=== PATIENT | male | born 1950 | race Caucasian/White ===

== ENCOUNTER 2017-09-15 08:28 | Emergency (ER) | payer MEDICARE ==
[~2017-09-15] VITALS: Ht 182.9 cm; Wt 101.1 kg
[~2017-09-15 08:28] MED LIST: PERC5TAB12 PO
[2017-09-15 08:33] VITALS: BP 127/73; PULSE 100; RESP 18; TEMP 98.3; O2SAT 97
[2017-09-15] MEDS ORDERED: HYDR-3535 PO (10:00)
--- NOTE | 2017-09-15 10:12 | PD ---
HPI Chief Complaint: Injury Time Seen by Provider: 10:00 Travel History International Travel<30 days: No Contact w/Intl Traveler<30days: No Traveled to known affect area: No History of Present Illness HPI The patient is a 67-year-old male who presents to the emergency department for right shoulder pain. The patient states he was helping a friend with his boat last night, when he walked around the boat he struck a ladder over the top of the right shoulder and scapula. The pain is located over the anterior aspect the shoulder and over the superior aspect the scapula. The patient has pain with abduction and extension of the right shoulder as well as palpation. He does note mild edema over the right trapezius and superior aspect of the right scapula. The patient is right-hand dominant. He denies any weakness or numbness of the right upper extremity, but does note difficulty with movement at the shoulder. The patient does have a history of multiple myeloma and is currently being treated by Dr. Silva at the [facility] in [place] with a experimental drug which requires a six-hour infusion. Symptoms are mild to moderate, worse after striking his shoulder on the ladder, and there are no current alleviating factors. The patient tried taking hydrocodone at home several hours ago without any alleviation of his symptoms. PFSH Past Medical History Cancer: Yes (MULTIPLE MYELOMIA ) Cardiomyopathy: Yes Diminished Hearing: No Kidney Stones: Yes Medical other: Yes (DRUG TRIALS FOR MULTIPLE MYLEOMA) Radiation Therapy: Yes Tetanus Vaccination: < 5 Years Influenza Vaccination: Yes Past Surgical History Tonsillectomy: Yes Other Surgery: Yes (tumor removed from spine 2011) Social History Alcohol Use: No Tobacco Use: No Substance Use: No Allergies-Medications (Allergen,Severity, Reaction): Coded Allergies: No Known Allergies (Unverified , 09/15/17) Reported Meds & Prescriptions Reported Meds & Active Scripts Active Reported Lortab (Hydrocodone-Acetaminophen) 10-325 Mg Tab 1 Tab PO Q6H PRN Review of Systems Except as stated in HPI: all other systems reviewed are Neg General / Constitutional: No: Fever Cardiovascular: No: Chest Pain or Discomfort Respiratory: No: Shortness of Breath Gastrointestinal: No: Nausea, Vomiting, Abdominal Pain Musculoskeletal: Positive: Limited ROM, Edema, Pain Neurologic: No: Paresthesia, Sensory Disturbance Physical Exam Narrative GENERAL: Awake, alert, nontoxic-appearing 67-year-old male who appears his stated age and is in no acute respiratory distress. SKIN: Focused skin assessment warm/dry. HEAD: Atraumatic. Normocephalic. EYES: No injection or drainage. NECK: Trachea midline. No JVD. . MUSCULOSKELETAL: Mild edema of the superior aspect of the right scapula with a noticeable 2 cm circular contusion. Mild discomfort upon palpation of the anterior aspect of the right shoulder. No tenderness of the clavicle or acromioclavicular joint. Limited ability to extend the right shoulder as well as abduct the right shoulder. He is able to flex and extend the right elbow as well as supinate and pronate the right forearm without difficulty. Intrinsic hand muscles are intact. Positive right radial pulse. NEUROLOGICAL: Awake and alert. No obvious cranial nerve deficits. Motor grossly within normal limits. Normal speech. Sensation is intact on the right upper extremity in the radial, median, and ulnar distribution. PSYCHIATRIC: Appropriate mood and affect; insight and judgment normal. Data Data Last Documented VS Vital Signs Date Time Temp Pulse Resp B/P (MAP) Pulse Ox O2 Delivery O2 Flow Rate FiO2 09/15/17 10:00 (91) 09/15/17 08:33 98.3 100 18 97 Room Air Orders Orders Morphine Inj (Morphine Inj) (09/15/17 10:15) Promethazine Inj (Phenergan Inj) (09/15/17 10:15) Shoulder, Limited(2vws) (09/15/17 ) [facility] Medical Decision Making Medical Screen Exam Complete: Yes Emergency Medical Condition: Yes Medical Record Reviewed: Yes Interpretation(s) Last Impressions Shoulder X-Ray 09/15/17 0000 Signed Impressions: Service Date/Time: Friday, September 15, 2017 10:33 - CONCLUSION: 1. No acute abnormality. Charbel Alejandra Jr., MD Differential Diagnosis Differential diagnosis includes fracture, contusion, hematoma, sprain, strain. Narrative Course X-ray of the right shoulder was obtained. The patient was administered morphine and Phenergan intramuscularly. X-ray of the right shoulder reveals no acute abnormality. Patient will be placed in a sling as needed. 4, however, is advised to have daily range of motion exercises. He is advised to follow-up with his primary physician is symptoms persist as he may benefit from outpatient orthopedic and her physical therapy consultation. The patient will be provided a copy of his x-ray results at discharge. The patient's current pain regimen as hydrocodone 10 mg as needed, however, he states he did not help. Therefore, the patient was treated to oxycodone 10 mg, is advised not to take hydrocodone while taking oxycodone. Diagnosis Primary Impression: Right shoulder pain Qualified Codes: M25.511 - Pain in right shoulder Patient Instructions: General Instructions Additional Instructions: Sling as needed for comfort. Daily range of motion exercises of the shoulder with extension and abduction. Ice over the affected area for 48 hours then ice and/or heat as needed. Follow-up with your primary physician. You may benefit from outpatient physical therapy and/or orthopedic evaluation if symptoms persist. Please provide the patient a copy of his x-ray results at discharge. Med/Other Pt SpecificInfo: Prescription(s) given, Med Stopped (stop hydrocodone wall taken oxycodone) Scripts Oxycodone-Acetaminophen (Percocet) 10-325 mg Tab 1 TAB PO Q6H Y for PAIN, #20 TAB 0 Refills Prov: Saeid Ibanez MD 09/15/17 Disposition: 01 DISCHARGE HOME Condition: Stable Saeid Ibanez MD Sep 15, 2017 10:12
[2017-09-15] MEDS ORDERED: MORPHINE SULFATE 4 MG/ML INJ IM ONE (10:15)
[2017-09-15] MEDS ORDERED: PROMETHAZINE INJ 25 MG/ML VIAL IM ONE (10:15)
--- NOTE | 2017-09-15 10:52 | RADRPT ---
EXAM DATE/TIME: 09/15/2017 10:33 [facility] COMPARISON: No previous studies available for comparison. INDICATIONS : Right shoulder pain post running into a ladder. MEDICAL HISTORY : Multiple myeloma SURGICAL HISTORY : Port placement ENCOUNTER: Initial ACUITY: 2 days PAIN SCORE: 10/10 LOCATION: Right shoulder FINDINGS: Two view examination of the right shoulder demonstrates no evidence of fracture or dislocation. Degen erative change is observed involving the acromioclavicular joint. No subacromial space narrowing. The glenohumeral and acromioclavicular joints are maintained. Bony mineralization is normal. A power po rt overlies the right chest. CONCLUSION: 1. No acute abnormality. Charbel Alejandra Jr., MD on September 15, 2017 at 10:48 Board Certified Radiologist. This report was verified electronically.
[2017-09-15] MEDS ORDERED: PERC10TA27 PO (11:32)
== END 2017-09-15 11:44 | disposition home or self-care (01) ==
LOC: PHED 08:28
DX: M25.511 Pain in right shoulder (principal); C90.00 Multiple myeloma not having achieved remission; W22.09XA Striking against other stationary object, initial encounter; Y92.814 Boat as the place of occurrence of the external cause
CPT/HCPCS: 73030; 96372; 99284; J2270; J2550

== ENCOUNTER 2018-03-04 07:11 | Inpatient (IN) | payer MEDICARE ==
[2018-03-04] VITALS (41 sets, daily range): BP systolic 74–140; BP diastolic 48–89; PULSE 58–170; RESP 0–25; TEMP 98.1–98.6; O2SAT 96–100
[~2018-03-04] VITALS: Ht 182.9 cm; Wt 92.7 kg
[~2018-03-04 07:11] MED LIST changes: +HYDR-3535 PO; +PERC10TA27 PO; -PERC5TAB12 PO
[2018-03-04] MEDS ORDERED: [UNRECOGNIZED DRUG - OTHER] PO (07:23)
[2018-03-04] MEDS ORDERED: MULT-65 PO (07:23)
[2018-03-04] MEDS ORDERED: [UNRECOGNIZED DRUG - OTHER] PO (07:23)
[2018-03-04] MEDS ORDERED: ASPI-183 PO (07:23)
--- NOTE | 2018-03-04 07:29 | PD ---
HPI Chief Complaint: Cardiac Complaint Time Seen by Provider: 07:21 Travel History International Travel<30 days: No Contact w/Intl Traveler<30days: No History of Present Illness HPI Patient is a 67-year-old male with history of multiple myeloma currently being treated by Dr. Duff at the [facility] in [place], presents the emergency room with complaints of nausea and vomiting for the past 3 days as well as abnormal heart rhythm for the past 12 hours. Patient reports that for the past 3 days, he has not been able to keep anything down. Patient reports that he has been nauseous and has been vomiting everything up, reports that for the past 12 hours, he has been having palpitations. Patient reports that he is currently on a drug trial for multiple myeloma, he completed 21 days of Revlimid 25mg (second cycle) and is currently on his week off of this medication. In addition, patient is currently taking AT-101 20mg daily for his MM. Patient denies any sick contacts, denies any recent travels, reports that his GI symptoms began all of a sudden 3 days ago. Patient reports that with his drug trials for multiple myeloma, his renal function is being monitored, last kidney function test 2 weeks ago was normal as per patient. At this time, patient reports feeling palpitations, denies any chest pain or shortness of breath. Denies any fevers or chills. 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 [facility] Past Medical History Cancer: Yes (MULTIPLE MYELOMIA ) Cardiomyopathy: Yes Diminished Hearing: No Kidney Stones: Yes Radiation Therapy: Yes Past Surgical History Tonsillectomy: Yes Other Surgery: Yes (tumor removed from spine 2011) Social History Alcohol Use: No Tobacco Use: No Substance Use: No Allergies-Medications (Allergen,Severity, Reaction): Coded Allergies: No Known Allergies (Unverified Allergy, Unknown, 03/04/18) Reported Meds & Prescriptions Reported Meds & Active Scripts Active Reported Aspirin 325 Mg Tab 325 Mg PO DAILY Multi-Vitamin Daily (Multiple Vitamin) 1 Tab Tab 1 Tab PO DAILY [revlmid] 25 Mg PO DAILY [At 101] 20 Mg PO DAILY Review of Systems General / Constitutional: No: Fever Eyes: No: Visual changes HENT: Positive: Headaches Cardiovascular: Positive: Palpitations, Irregular Rhythm, Tachycardia, No: Chest Pain or Discomfort, Diaphoresis, Syncope Respiratory: No: Shortness of Breath Gastrointestinal: Positive: Nausea, Vomiting, No: Diarrhea, Abdominal Pain, Constipation Genitourinary: No: Dysuria Musculoskeletal: No: Pain Skin: No Rash Neurologic: No: Weakness Psychiatric: No: Depression Endocrine: No: Polydipsia Hematologic/Lymphatic: No: Easy Bruising Physical Exam Narrative GENERAL: moderate distress SKIN: Focused skin assessment warm/dry. HEAD: Atraumatic. Normocephalic. EYES: Pupils equal and round. No scleral icterus. No injection or drainage. ENT: No nasal bleeding or discharge. Mucous membranes pink and tachy NECK: Trachea midline. No JVD. CARDIOVASCULAR: Tachycardic. No murmur appreciated. RESPIRATORY: No accessory muscle use. Clear to auscultation. Breath sounds equal bilaterally. GASTROINTESTINAL: Abdomen soft, non-tender, nondistended. Hepatic and splenic margins not palpable. MUSCULOSKELETAL: No obvious deformities. No clubbing. No cyanosis. No edema. NEUROLOGICAL: Awake and alert. No obvious cranial nerve deficits. Motor grossly within normal limits. Normal speech. PSYCHIATRIC: Anxious mood and affect; insight and judgment normal. Data Data Last Documented VS Vital Signs Date Time Temp Pulse Resp B/P (MAP) Pulse Ox O2 Delivery O2 Flow Rate FiO2 03/04/18 10:10 138 18 103/71 (82) 98 Room Air 03/04/18 07:24 98.6 Orders Orders B-Type Natriuretic Peptide (03/04/18 07:22) Ckmb (Isoenzyme) Profile (03/04/18 07:22) Complete Blood Count With Diff (03/04/18 07:22) Comprehensive Metabolic Panel (03/04/18 07:22) Magnesium (Mg) (03/04/18 07:22) Prothrombin Time / Inr (Pt) (03/04/18 07:22) Act Partial Throm Time (Ptt) (03/04/18 07:22) Troponin I (03/04/18 07:22) Lipase (03/04/18 07:22) Chest, Single Ap (03/04/18 07:22) Ecg Monitoring (03/04/18 07:22) Iv Access Insert/Monitor (03/04/18 07:22) Oximetry (03/04/18 07:22) Sodium Chloride 0.9% Flush (Ns Flush) (03/04/18 07:30) Sodium Chlor 0.9% 1000 Ml Inj (Ns 1000 M (03/04/18 07:30) Sodium Chlor 0.9% 1000 Ml Inj (Ns 1000 M (03/04/18 07:30) Calcium Gluconate Inj (Calcium Gluconate (03/04/18 07:30) Adenosine Inj (Adenocard Inj) (03/04/18 08:15) Ct Pulmonary Angiogram (03/04/18 08:37) Iohexol 350 Inj (Omnipaque 350 Inj) (03/04/18 09:21) Sodium Chlor 0.9% 1000 Ml Inj (Ns 1000 M (03/04/18 09:45) Electrocardiogram (03/04/18 ) Diltiazem Inj (Cardizem Inj) (03/04/18 10:15) Aspirin (Aspirin) (03/04/18 10:15) Admit Order (Ed Use Only) (03/04/18 10:21) Potassium Chloride (Kcl) (03/04/18 10:30) Magnesium Sulfate 1 Gm Premix (Magnesium (03/04/18 10:30) Labs Laboratory Tests Test 03/04/18 07:25 White Blood Count 8.6 TH/MM3 Red Blood Count 5.17 MIL/MM3 Hemoglobin 15.3 GM/DL Hematocrit 45.5 % Mean Corpuscular Volume 87.9 FL Mean Corpuscular Hemoglobin 29.5 PG Mean Corpuscular Hemoglobin Concent 33.6 % Red Cell Distribution Width 16.6 % Platelet Count 215 TH/MM3 Mean Platelet Volume 8.3 FL Neutrophils (%) (Auto) 57.5 % Lymphocytes (%) (Auto) 24.4 % Monocytes (%) (Auto) 16.9 % Eosinophils (%) (Auto) 1.0 % Basophils (%) (Auto) 0.2 % Neutrophils # (Auto) 5.0 TH/MM3 Lymphocytes # (Auto) 2.1 TH/MM3 Monocytes # (Auto) 1.4 TH/MM3 Eosinophils # (Auto) 0.1 TH/MM3 Basophils # (Auto) 0.0 TH/MM3 CBC Comment DIFF FINAL Differential Comment Prothrombin Time 10.5 SEC Prothromb Time International Ratio 1.0 RATIO Activated Partial Thromboplast Time 35.1 SEC Blood Urea Nitrogen 30 MG/DL Creatinine 1.00 MG/DL Random Glucose 110 MG/DL Total Protein 6.9 GM/DL Albumin 3.3 GM/DL Calcium Level 8.7 MG/DL Magnesium Level 2.1 MG/DL Alkaline Phosphatase 89 U/L Aspartate Amino Transf (AST/SGOT) 16 U/L Alanine Aminotransferase (ALT/SGPT) 36 U/L Total Bilirubin 0.9 MG/DL Sodium Level 137 MEQ/L Potassium Level 3.3 MEQ/L Chloride Level 100 MEQ/L Carbon Dioxide Level 30.3 MEQ/L Anion Gap 7 MEQ/L Estimat Glomerular Filtration Rate 75 ML/MIN Total Creatine Kinase 36 U/L Troponin I LESS THAN 0.02 NG/ML B-Type Natriuretic Peptide 47 PG/ML Lipase 163 U/L MDM Medical Decision Making Medical Screen Exam Complete: Yes Emergency Medical Condition: Yes Medical Record Reviewed: Yes Interpretation(s) Vital Signs Date Time Temp Pulse Resp B/P (MAP) Pulse Ox O2 Delivery O2 Flow Rate FiO2 03/04/18 07:24 98.6 170 20 117/89 (98) 99 Differential Diagnosis Electrolyte abnormality, ACS, gastroenteritis Narrative Course 67-year-old male who presents the emergency room with complaints of palpitations and tachycardia for the past 2 hours, reports that for the past 3 days, he has been having increased nausea vomiting, he is unable to keep any fluids or food in his system. During the course of the patients emergency department visit, the patients history, examination, and differential diagnosis were reviewed with the patient. The patient was placed on a monitoring and evaluation advisor with oximetry and frequent blood pressure monitoring. The patient had an IV access obtained and blood work sent for analysis. The patient was initially provided 2 L of IV fluid The patients laboratory studies were reviewed and remarkable for: Laboratory Tests Test 03/04/18 07:25 White Blood Count 8.6 TH/MM3 (4.0-11.0) Red Blood Count 5.17 MIL/MM3 (4.50-5.90) Hemoglobin 15.3 GM/DL (13.0-17.0) Hematocrit 45.5 % (39.0-51.0) Mean Corpuscular Volume 87.9 FL (80.0-100.0) Mean Corpuscular Hemoglobin 29.5 PG (27.0-34.0) Mean Corpuscular Hemoglobin Concent 33.6 % (32.0-36.0) Red Cell Distribution Width 16.6 % (11.6-17.2) Platelet Count 215 TH/MM3 (150-450) Mean Platelet Volume 8.3 FL (7.0-11.0) Neutrophils (%) (Auto) 57.5 % (16.0-70.0) Lymphocytes (%) (Auto) 24.4 % (9.0-44.0) Monocytes (%) (Auto) 16.9 % (0.0-8.0) Eosinophils (%) (Auto) 1.0 % (0.0-4.0) Basophils (%) (Auto) 0.2 % (0.0-2.0) Neutrophils # (Auto) 5.0 TH/MM3 (1.8-7.7) Lymphocytes # (Auto) 2.1 TH/MM3 (1.0-4.8) Monocytes # (Auto) 1.4 TH/MM3 (0-0.9) Eosinophils # (Auto) 0.1 TH/MM3 (0-0.4) Basophils # (Auto) 0.0 TH/MM3 (0-0.2) CBC Comment DIFF FINAL Differential Comment Prothrombin Time 10.5 SEC (9.8-11.6) Prothromb Time International Ratio 1.0 RATIO Activated Partial Thromboplast Time 35.1 SEC (24.3-30.1) Blood Urea Nitrogen 30 MG/DL (7-18) Creatinine 1.00 MG/DL (0.60-1.30) Random Glucose 110 MG/DL (74-106) Total Protein 6.9 GM/DL (6.4-8.2) Albumin 3.3 GM/DL (3.4-5.0) Calcium Level 8.7 MG/DL (8.5-10.1) Magnesium Level 2.1 MG/DL (1.5-2.5) Alkaline Phosphatase 89 U/L (45-117) Aspartate Amino Transf (AST/SGOT) 16 U/L (15-37) Alanine Aminotransferase (ALT/SGPT) 36 U/L (12-78) Total Bilirubin 0.9 MG/DL (0.2-1.0) Sodium Level 137 MEQ/L (136-145) Potassium Level 3.3 MEQ/L (3.5-5.1) Chloride Level 100 MEQ/L (98-107) Carbon Dioxide Level 30.3 MEQ/L (21.0-32.0) Anion Gap 7 MEQ/L (5-15) Estimat Glomerular Filtration Rate 75 ML/MIN (>89) Total Creatine Kinase 36 U/L (39-308) Troponin I LESS THAN 0.02 NG/ML B-Type Natriuretic Peptide 47 PG/ML (0-100) Lipase 163 U/L (73-393) Radiology studies were reviewed and remarkable for: Last Impressions CT Angiography 03/04/18 0837 Signed Impressions: Service Date/Time: Sunday, March 04, 2018 09:09 - CONCLUSION: No acute disease. No PE. No parenchyma abnormality. Cassy Harp MD Chest X-Ray 03/04/18721 Signed Impressions: Service Date/Time: Sunday, March 04, 2018 07:29 - CONCLUSION: No acute disease. Cassy Harp MD Patient appears to go from sinus tachycardia with a heart rate in the 160s to normal sinus rhythm at 80-90 bpm, I did administer a dose of iv adenosine 6mg as his hr fluctuates to the 160's - 170s - after this was given, patients rhythm shows atrial fibrillation. Discussed with patient need to start a Cardizem drip. Plan to admit to ICU Case reviewed with Dr. Lujan who accepts patient to service. Critical Care Narrative Aggregate critical care time was 30 minutes. Time to perform other separately billable procedures was not included in the critical care time. My time did not include minutes spent treating any other patients simultaneously or on activities that did not directly contribute to the patient's treatment. The services I provided to this patient were to treat and/or prevent clinically significant deterioration that could result in: , decompensation, deterioration I provided critical care services requiring my management, as noted below: Chart data review, documentation time, medication orders and management, vital sign assessments/reviewing monitor data, ordering and reviewing lab tests, ordering and interpreting/reviewing x-rays and diagnostic studies, care of the patient and discussion of the patient with the admitting physicians. Diagnosis Primary Impression: New onset a-fib Admitting Information Admitting Physician Requests: Observation Vicky Oden DO Mar 04, 2018 07:29
[2018-03-04] MEDS ORDERED: SODIUM CHLOR 0.9% 1000 ML INJ 1,000 ML IV ONE ×4 (07:30→14:30)
[2018-03-04] MEDS ORDERED: CALCIUM GLUCONATE INJ 2 GM in DEXTROSE 5% IN WATER 100ML INJ 100 ML IV ONE ×2 (07:30)
[2018-03-04] MEDS ORDERED: SODIUM CHLORIDE 0.9% FLUSH 10 ML FLUSH IVF PRN (07:30)
[2018-03-04 07:38] LABS: BASOPHIL % 0.2 % (0.0-2.0); EOSINOPHIL # 0.1 TH/MM3 (0-0.4); HEMATOCRIT 45.5 % (39.0-51.0); HEMOGLOBIN 15.3 GM/DL (13.0-17.0); LYMPH % 24.4 % (9.0-44.0); LYMPHOCYTE # 2.1 TH/MM3 (1.0-4.8); MEAN CELL VOLUME 87.9 FL (80.0-100.0); MEAN CORPUSCULAR HEMOGLOBIN 29.5 PG (27.0-34.0); MEAN CORPUSCULAR HGB CONC 33.6 % (32.0-36.0); MEAN PLATELET VOLUME 8.3 FL (7.0-11.0); MONO % 16.9 % (0.0-8.0); MONOCYTE # 1.4 TH/MM3 (0-0.9); NEUT % 57.5 % (16.0-70.0); PLATELET COUNT 215 TH/MM3 (150-450); RED BLOOD COUNT 5.17 MIL/MM3 (4.50-5.90); RED CELL DISTRIBUTION WIDTH 16.6 % (11.6-17.2); WHITE BLOOD COUNT 8.6 TH/MM3 (4.0-11.0)
--- NOTE | 2018-03-04 07:42 | RADRPT ---
EXAM DATE/TIME: 03/04/2018 07:29 [facility] COMPARISON: CHEST SINGLE AP, May 07, 2015, 22:30. INDICATIONS : Palpitations MEDICAL HISTORY : Multiple myeloma SURGICAL HISTORY : port placement ENCOUNTER: Initial ACUITY: 1 day PAIN SCORE: 0/10 LOCATION: Bilateral chest FINDINGS: A single view of the chest demonstrates the lungs to be symmetrically aerated without evidence of mas s, infiltrate or effusion. There is a central line present with the tip overlying the distal SVC. The cardiomediastinal contours are unremarkable. Osseous structures are intact. CONCLUSION: No acute disease. Cassy Harp MD on March 04, 2018 at 7:39 Board Certified Radiologist. This report was verified electronically.
[2018-03-04 07:46] LABS: CHLORIDE 100 MEQ/L (98-107); SODIUM (NA) 137 MEQ/L (136-145)
[2018-03-04 07:49] LABS: CALCIUM 8.7 MG/DL (8.5-10.1)
[2018-03-04 07:50] LABS: ALBUMIN 3.3 GM/DL (3.4-5.0); BICARBONATE 30.3 MEQ/L (21.0-32.0); BLOOD UREA NITROGEN 30 MG/DL (7-18); GLUCOSE,RANDOM 110 MG/DL (74-106); MAGNESIUM 2.1 MG/DL (1.5-2.5); PROTHROMBIN TIME - PATIENT 10.5 SEC (9.8-11.6)
[2018-03-04 07:53] LABS: ALT (GPT) 36 U/L (12-78); AST (GOT) 16 U/L (15-37); GLOMERULAR FILTRATION RATE 75 ML/MIN (>89)
[2018-03-04 07:54] LABS: TOTAL BILIRUBIN ADULT 0.9 MG/DL (0.2-1.0); TOTAL PROTEIN 6.9 GM/DL (6.4-8.2)
[2018-03-04 07:56] LABS: ALKALINE PHOSPHATASE 89 U/L (45-117)
[2018-03-04 07:58] LABS: TROPONIN I LESS THAN 0.02 NG/ML (0.02-0.05)
[2018-03-04] MEDS: ADENOSINE IV SOLN 3 MG/ML 2 ML VIAL IV PUSH ONE ×2 (08:23→09:51)
[2018-03-04] MEDS ORDERED: IOHEXOL 350 MG/ML 10 ML VIAL (for RAD DIAG) IVCONTRAST ONE (09:21)
--- NOTE | 2018-03-04 09:30 | RADRPT ---
EXAM DATE/TIME: 03/04/2018 09:09 [facility] COMPARISON: CHEST SINGLE AP, March 04, 2018, 7:29. INDICATIONS : Tachycardia. IV CONTRAST: 65 cc Omnipaque 350 (iohexol) IV RADIATION DOSE: 17.87 CTDIvol (mGy) MEDICAL HISTORY : Multiple myeloma. SURGICAL HISTORY : Tumor removed from spine. ENCOUNTER: Initial ACUITY: 1 day PAIN SCALE: 0/10 LOCATION: chest TECHNIQUE: Volumetric scanning of the chest was performed using a pulmonary embolism protocol MIP images were re constructed. Using automated exposure control and adjustment of the mA and/or kV according to patien t size, radiation dose was kept as low as reasonably achievable to obtain optimal diagnostic quality images. DICOM format image data is available electronically for review and comparison. Follow-up recommendations for detected pulmonary nodules are based at a minimum on nodule size and pa tient risk factors according to Fleischner Society Guidelines. FINDINGS: PULMONARY ARTERIES: No filling defects are seen in the pulmonary arteries through the segmental level. LUNGS: There is no consolidation or pneumothorax . No concerning pulmonary nodule is visualized. PLEURAE: There is no pleural thickening or pleural effusion. MEDIASTINUM: There is good visualization of the great vessels of the middle mediastinum. No evidence of mediastin al or hilar adenopathy/mass. MUSCULOSKELETAL: Within normal limits for patient age. MISCELLANEOUS: The visualized upper abdominal organs demonstrate no acute abnormality. CONCLUSION: No acute disease. No PE. No parenchyma abnormality. Cassy Harp MD on March 04, 2018 at 9:24 Board Certified Radiologist. This report was verified electronically.
[2018-03-04] MEDS ORDERED: DILTIAZEM INJ 125 MG in SODIUM CHLORIDE 0.9% INJ 100 ML IV PRN (10:15)
[2018-03-04] MEDS ORDERED: ASPIRIN 325 MG TAB PO ONE (10:15)
[2018-03-04] MEDS: SODIUM CHLOR 0.9% 1000 ML INJ 1,000 ML IV SCH ×2 (10:25→21:07)
[2018-03-04] MEDS ORDERED: CHLORHEXIDINE GLUCONATE 2 % 1 PACK (2 CLOTHS) TOP PRN (10:30)
[2018-03-04] MEDS ORDERED: LACTULOSE SYRUP 20 GM/30 ML CUP PO PRN (10:30)
[2018-03-04] MEDS ORDERED: ACETAMINOPHEN 325 MG TAB PO PRN (10:30)
[2018-03-04] MEDS ORDERED: MAGNESIUM SULFATE 1 GM PREMIX 100 ML IV SCH (10:30)
[2018-03-04] MEDS ORDERED: ONDANSETRON HCL 4 MG/2 ML VIAL IV PUSH PRN (10:30)
[2018-03-04] MEDS ORDERED: SODIUM CHLORIDE 0.9% FLUSH 10 ML FLUSH IV FLUSH PRN (10:30)
[2018-03-04] MEDS ORDERED: MAGNESIUM HYDROXIDE SUSP 30 ML CUP PO PRN (10:30)
[2018-03-04] MEDS ORDERED: RESP: ALBUTEROL 2.5 MG/3 ML NEB (PRN) INH (10:30)
[2018-03-04] MEDS ORDERED: POTASSIUM CHLORIDE 20 MEQ CONTROLLED RELEASE TAB PO ONE (10:30)
[2018-03-04] MEDS ORDERED: BISACODYL 10 MG SUPP RECTAL PRN (10:30)
[2018-03-04] MEDS ORDERED: MISCELLANEOUS NURSING INFORMATION XX SCH (10:30)
[2018-03-04] MEDS ORDERED: MORPHINE SULFATE 4 MG/ML INJ IV PUSH PRN (10:30)
[2018-03-04] MEDS ORDERED: SENNOSIDES 8.6 MG TAB PO PRN (10:30)
[2018-03-04] MEDS ORDERED: ACETAMINOPHEN/HYDROcodone 325 MG/5 MG TAB PO PRN (10:30)
[2018-03-04] MEDS ORDERED: POTASSIUM CHLOR 10 MEQ PREMIX 100 ML IV SCH (10:45)
[2018-03-04] MEDS ORDERED: ALBUMIN 5% INJ 500 ML IV ONE (10:45)
[2018-03-04] MEDS ORDERED: DIGOXIN 0.5 MG/2 ML VIAL IV PUSH ONE ×2 (10:45→16:45)
[2018-03-04] MEDS ORDERED: TERBUTALINE INJ 1 MG/ML AMP SQ PRN (11:15)
[2018-03-04] MEDS ORDERED: ESMOLOL DRIP INJ PREMIX 250 ML IV PRN (11:15)
[2018-03-04] MEDS ORDERED: PHENYLEPHRINE INJ 40 MG in DEXTROSE 5% IN WATE 500 ML INJ 496 ML IV PRN ×2 (11:15)
[2018-03-04] MEDS ORDERED: PHENYLEPHRINE HCL 10 MG/ML VIAL ONE (12:29)
[2018-03-04] MEDS ORDERED: PILL SPLITTER OTHER PRN (14:45)
--- NOTE | 2018-03-04 16:37 | EKG ---
Date Performed: 03/04/2018 Time Performed: 07:15:47 PTAGE: 67 years EKG: ATRIAL FLUTTER WITH 2:1 CONDUCTION AND RAPID VENTRICULAR RATE INTRAVENTRICULAR CONDUCTION D ELAY DIFFUSE NONSPECIFIC ST-T CHANGE Compared to previous tracing, atrial fibrillation has changed to atrial flutter ABNORMAL ECG PREVIOUS TRACING : 05/07/2015 22.31 DOCTOR: Roldan Goldman Interpretating Date/Time 03/04/2018 16:35:49
--- NOTE | 2018-03-04 16:38 | EKG ---
Date Performed: 03/04/2018 Time Performed: 08:12:46 PTAGE: 67 years EKG: Rhythm begins at Sinus rhythm with a rate of 62. A Premature atrial contraction occurs midway through the tracing which changes th e rhythm to atrial fibrillation with rapid ventricular response Right ventricular conduction disturba nce Compared to previous tracing, there is a rhythm change from atrial flutter on the previous tracin g to sinus rhythm back to atrial fibrillation on this tracing ABNORMAL ECG PREVIOUS TRACING : 03/04/2018 07.15 DOCTOR: Roldan Goldman Interpretating Date/Time 03/04/2018 16:37:48
--- NOTE | 2018-03-04 16:40 | EKG ---
Date Performed: 03/04/2018 Time Performed: 08:14:39 PTAGE: 67 years EKG: SINUS TACHYCARDIA WITH ATRIAL BIGEMINY FOR 2 BEATS. THEN PREMATURE ATRIAL CONTRACTION CONVE RTS RHYTHM TO ATRIAL FIBRILLATION WITH RAPID VENTRICULAR RESPONSE OF 150-[address]-T WAVE CH SNEHAL Since the previous tracing, no significant change noted Clinical correlation is recommended ABNO RMAL ECG PREVIOUS TRACING : 03/04/2018 07.15 DOCTOR: Roldan Goldman Interpretating Date/Time 03/04/2018 16:39:17
--- NOTE | 2018-03-04 16:41 | EKG ---
Date Performed: 03/04/2018 Time Performed: 10:05:38 PTAGE: 67 years EKG: ATRIAL FIBRILLATION WITH RAPID VENTRICULAR RESPONSE MODERATE ST DEPRESSION Compared to prev ious tracing, rhythm is now persistently atrial fibrillation with rapid ventricular response ABNORMAL ECG PREVIOUS TRACING : 03/04/2018 08.14 DOCTOR: Roldan Goldman Interpretating Date/Time 03/04/2018 16:39:55
--- NOTE | 2018-03-04 16:41 | EKG ---
Date Performed: 03/04/2018 Time Performed: 10:44:24 PTAGE: 67 years EKG: ATRIAL FIBRILLATION WITH RAPID VENTRICULAR RESPONSE MODERATE ST DEPRESSION DIFFUSE NONSPECI FIC ST-T WAVE CHANGE Since the previous tracing, no significant change noted ABNORMAL ECG PREVIOUS TRACING : 03/04/2018 10.05 DOCTOR: Roldan Goldman Interpretating Date/Time 03/04/2018 16:40:31
[2018-03-04 16:45] LABS: MAGNESIUM 1.8 MG/DL (1.5-2.5)
[2018-03-04 16:54] LABS: TROPONIN I 0.02 NG/ML (0.02-0.05)
[2018-03-04] MEDS ORDERED: ZOLPIDEM TARTRATE 5 MG TAB PO PRN (18:15)
--- NOTE | 2018-03-04 18:22 | ECHRPT ---
Indication: A FIB FLUTTER CONCLUSIONS Normal left ventricular size. Wall thickness is normal. The left ventricular systolic function is normal with an estimated ejection fraction in the range of 55-60%. Mitral annular calcification is present. Mild mitral annular calcification. There is mild tricuspid valve regurgitation. The estimated pulmonary arterial pressure is 26 mmHg. BP: / HR: Rhythm: MEASUREMENTS (Male / Female) Normal Values Technical Quality: 2D ECHO LV Diastolic Diameter PLAX 4.8 cm 4.2 - 5.9 / 3.9 - 5.3 cm LV Systolic Diameter PLAX 3.6 cm IVS Diastolic Thickness 0.9 cm 0.6 - 1.0 / 0.6 - 0.9 cm LVPW Diastolic Thickness 0.9 cm 0.6 - 1.0 / 0.6 - 0.9 cm LV Relative Wall Thickness 0.4 RV Internal Dim ED PLAX 2.1 cm LA Systolic Diameter LX 3.8 cm 3.0 - 4.0 / 2.7 - 3.8 cm M-MODE Aortic Root Diameter MM 3.6 cm AV Cusp Separation MM 2.4 cm DOPPLER Mitral E Point Velocity 122.0 cm/s Mitral A Point Velocity 85.8 cm/s Mitral E to A Ratio 1.4 TR Peak Velocity 233.0 cm/s TR Peak Gradient 21.7 mmHg Right Atrial Pressure 5.0 mmHg Pulmonary Artery Systolic Pressu 26.7 mmHg Right Ventricular Systolic Press 26.7 mmHg FINDINGS LEFT VENTRICLE Normal left ventricular size. Wall thickness is normal. The left ventricular systolic function is normal with an estimated ejection fraction in the range of 55-60%. RIGHT VENTRICLE Normal right ventricular size and systolic function. LEFT ATRIUM The left atrial size is normal. RIGHT ATRIUM The right atrial size is normal. ATRIAL SEPTUM Normal atrial septal thickness without atrial level shunting by limited color doppler interrogation. AORTA The aortic root and proximal ascending aorta are normal in size on limited imaging. MITRAL VALVE Mitral annular calcification is present. Mild mitral annular calcification. AORTIC VALVE Trileaflet aortic valve. No aortic valve stenosis or regurgitation. TRICUSPID VALVE There is mild tricuspid valve regurgitation. The estimated pulmonary arterial pressure is 26 mmHg. PULMONARY VALVE No pulmonary valve regurgitation or stenosis. VESSELS The inferior vena cava is normal in size. PERICARDIUM No pericardial effusion. Jimmy Segura MD, FACC (Electronically Signed) Final Date:04 March 2018 18:22
--- NOTE | 2018-03-04 18:40 | HHI.HP ---
[facility] Service Critical Care Medicine Primary Care Physician Non-Staff Admission Diagnosis New Onset Afib with RVR Diagnosis: Chief Complaint: Chest discomfort, no pain Travel History International Travel<30 Days: No Contact w/Intl Traveler <30 Da: No Traveled to Known Affected Are: No History of Present Illness This otherwise healthy 67-year-old gentleman presents to the [place] emergency department with a rapid heart rate in the range of 150-170 bpm. He developed atrial fibrillation once before following a back operation. His normal rhythm is sinus mechanism and he has never had persistent atrial fibrillation. This present illness was preceded by 3 days of vomiting and resulted in fairly marked dehydration. Additionally his potassium was low at 3.3. Following rate control with esmolol and digoxin bolus therapy in the emergency department his he converted to a sinus mechanism. On my arrival to the ICU at [place] she is in a sinus rhythm on esmolol drip. He requires low-dose Shane-Synephrine to maintain systolic blood pressure greater than 100. He is received over 3 L of isotonic crystalloid but is yet to make adequate urine. He has multiple myeloma by history and is presently in a drug protocol through the [facility] in [place]. He recently completed an additional cycle of Rivilmid and is on an experimental medication as well. Review of Systems ROS No chest pain no shortness of breath just an uneasy feeling of rapid heart rate. Past Family Social History Allergies: Coded Allergies: No Known Allergies (Unverified Allergy, Unknown, 03/04/18) Physical Exam Vital Signs Vital Signs Date Time Temp Pulse Resp B/P (MAP) Pulse Ox O2 Delivery O2 Flow Rate FiO2 03/04/18 15:45 98 21 03/04/18 14:50 72 92/63 03/04/18 14:23 63 79/50 03/04/18 14:00 62 97/63 03/04/18 12:46 132 90/62 03/04/18 12:41 77 91/63 03/04/18 12:00 03/04/18 11:00 142 18 106/71 (83) 98 Room Air 03/04/18 10:10 138 18 103/71 (82) 98 Room Air 03/04/18 09:37 148 16 108/64 (79) 98 Room Air 03/04/18 08:35 125 18 108/76 (87) 99 Room Air 03/04/18 08:18 128 18 100/78 (85) 98 Room Air 03/04/18 08:12 110 16 84/67 (73) 99 Room Air 03/04/18 08:03 160 16 94/68 (77) 98 Room Air 03/04/18 08:00 160 18 74/48 (57) 99 Room Air 03/04/18 07:43 18 100 Room Air 03/04/18 07:24 98.6 170 20 117/89 (98) 99 Physical Exam Pulse 76 and sinus, systolic blood pressures 96, respiratory rate is 13 and nonlabored, oxygen saturation is 98% on room air Head atraumatic normal Neck supple airway widely patent Lungs clear bilaterally without wheezes or crackles. Comfortable respiratory pattern Heart: Normal S1-S2, no murmur or rub, neck veins are flat. Abdomen: Soft, nontender, nondistended, no guarding, bowel sounds are active Extremities: Warm, well-perfused Neuro: Oriented 3, alert, cooperative. Speech is clear. He moves 4 extremities with 5/5 strength and to command. Extraocular movements, pupillary response, smile, grimace, shoulder shrug are intact and symmetrical. Laboratory Laboratory Tests Test 03/04/18 07:25 03/04/18 15:15 03/04/18 16:22 White Blood Count 8.6 Red Blood Count 5.17 Hemoglobin 15.3 Hematocrit 45.5 Mean Corpuscular Volume 87.9 Mean Corpuscular Hemoglobin 29.5 Mean Corpuscular Hemoglobin Concent 33.6 Red Cell Distribution Width 16.6 Platelet Count 215 Mean Platelet Volume 8.3 Neutrophils (%) (Auto) 57.5 Lymphocytes (%) (Auto) 24.4 Monocytes (%) (Auto) 16.9 Eosinophils (%) (Auto) 1.0 Basophils (%) (Auto) 0.2 Neutrophils # (Auto) 5.0 Lymphocytes # (Auto) 2.1 Monocytes # (Auto) 1.4 Eosinophils # (Auto) 0.1 Basophils # (Auto) 0.0 CBC Comment DIFF FINAL Differential Comment Prothrombin Time 10.5 Prothromb Time International Ratio 1.0 Activated Partial Thromboplast Time 35.1 Blood Urea Nitrogen 30 Creatinine 1.00 Random Glucose 110 Total Protein 6.9 Albumin 3.3 Calcium Level 8.7 Magnesium Level 2.1 1.8 Alkaline Phosphatase 89 Aspartate Amino Transf (AST/SGOT) 16 Alanine Aminotransferase (ALT/SGPT) 36 Total Bilirubin 0.9 Sodium Level 137 Potassium Level 3.3 3.5 Chloride Level 100 Carbon Dioxide Level 30.3 Anion Gap 7 Estimat Glomerular Filtration Rate 75 Total Creatine Kinase 36 Troponin I LESS THAN 0.02 0.02 B-Type Natriuretic Peptide 47 Lipase 163 Result Diagram: 03/04/18 0725 03/04/18 1622 Caprini VTE Risk Assessment Caprini VTE Risk Assessment: Mod/High Risk (score >= 2) Caprini Risk Assessment Model Point Value = 1 Point Value = 2 Point Value = 3 Point Value = 5 Age 41-60 Minor surgery BMI > 25 kg/m2 Swollen legs Varicose veins or History of unexplained or recurrent spontaneous Oral contraceptives or hormone replacement Sepsis (< 1 month) Serious lung disease, including pneumonia (< 1 month) Abnormal pulmonary function Acute myocardial infarction Congestive heart failure (< 1 month) History of inflammatory bowel disease Medical patient at bed rest Age 61-74 Arthroscopic surgery Major open surgery (> 45 min) Laparoscopic surgery (> 45 min) Malignancy Confined to bed (> 72 hours) Immobilizing plaster cast Central venous access Age >= 75 History of VTE Family history of VTE Factor V Leiden Prothrombin [id number] Lupus anticoagulant Anticardiolipin antibodies Elevated serum homocysteine Heparin-induced thrombocytopenia Other congenital or acquired thrombophilia Stroke (< 1 month) Elective arthroplasty Hip, pelvis, or leg fracture Acute spinal cord injury (< 1 month) Prophylaxis Regimen Total Risk Factor Score Risk Level Prophylaxis Regimen 0-1 Low Early ambulation 2 Moderate Order ONE of the following: *Sequential Compression Device (SCD) *Heparin 5000 units SQ BID 3-4 Higher Order ONE of the following medications: *Heparin 5000 units SQ TID *Enoxaparin/Lovenox 40 mg SQ daily (WT < 150 kg, CrCl > 30 mL/min) *Enoxaparin/Lovenox 30 mg SQ daily (WT < 150 kg, CrCl > 10-29 mL/min) *Enoxaparin/Lovenox 30 mg SQ BID (WT < 150 kg, CrCl > 30 mL/min) AND/OR *Sequential Compression Device (SCD) 5 or more Highest Order ONE of the following medications: *Heparin 5000 units SQ TID (Preferred with Epidurals) *Enoxaparin/Lovenox 40 mg SQ daily (WT < 150 kg, CrCl > 30 mL/min) *Enoxaparin/Lovenox 30 mg SQ daily (WT < 150 kg, CrCl > 10-29 mL/min) *Enoxaparin/Lovenox 30 mg SQ BID (WT < 150 kg, CrCl > 30 mL/min) AND *Sequential Compression Device (SCD) Assessment and Plan Assessment and Plan Assessment: 1. New onset atrial fibrillation with rapid ventricular response. 2. Brief episode atrial flutter. 3. Dehydration, moderate 4. Hypokalemia. 5. Multiple myeloma Plan: 1. Continue Shane-Synephrine to maintain systolic blood pressure over 100. 2. Start p.o. Lopressor and taper off esmolol drip. 3. Magnesium and potassium bolus. 4. Protonix for GI ulcer prophylaxis. 5. Lovenox for DVT prophylaxis. 6. Recheck electrolytes in morning after repletion. 7. Repeat EKG in a.m. 8. Send records to his physician at [facility] [place]. Overall impression: This episode of atrial fibrillation appears to have been precipitated by electrolyte balance associated with moderate dehydration. His prior episode occurred following a back surgery and was brief. He is not on long-term beta-nasreen therapy. If he remains in sinus mechanism overnight we will continue outpatient beta-nasreen therapy and have his medication adjusted by his physician in [place]. Virgilio Ramsey MD Mar 04, 2018 18:40
[2018-03-04] MEDS ORDERED: ENOXAPARIN SODIUM 40 MG/0.4 ML SYRINGE SQ SCH (20:00)
[2018-03-04] MEDS: METOPROLOL TARTRATE 25 MG TAB PO SCH ×2 (20:44→22:18)
[2018-03-04] MEDS ORDERED: DOCUSATE SODIUM 50 MG/SENNA 8.6 MG TAB PO SCH (21:00)
[2018-03-04] MEDS ORDERED: SODIUM CHLORIDE 0.9% FLUSH 10 ML FLUSH IV FLUSH SCH (21:00)
[2018-03-05] VITALS: PULSE 56
[2018-03-05 00:01] VITALS: BP 128/78; PULSE 62; RESP 11; TEMP 99.9; O2SAT 97
[2018-03-05] MEDS ORDERED: CHLORHEXIDINE GLUCONATE 2 % 1 PACK (2 CLOTHS) TOP SCH (04:00)
[2018-03-05] MEDS ORDERED: PANTOPRAZOLE SOD 40 MG DELAYED RELEASE TAB PO SCH (09:00)
[2018-03-05] MEDS ORDERED: ASPIRIN 325 MG TAB PO SCH (09:00)
[2018-03-05] MEDS ORDERED: REVLIMID 25 MG PO SCH (09:00)
[2018-03-05] MEDS ORDERED: LENALIDOMIDE 25 MG PO SCH (09:00)
[2018-03-05] MEDS ORDERED: [UNRECOGNIZED DRUG - OTHER] PO SCH (09:00)
[2018-03-05] MEDS ORDERED: MULTIVITAMIN TAB PO SCH (09:00)
--- NOTE | 2018-03-05 13:58 | HHI.DS ---
Discharge Summary Admission Date Mar 04, 2018 at 10:31 Discharge Date: Mar 05, 2018 Admitting Diagnosis New Onset Afib with RVR (1) Paroxysmal atrial fibrillation ICD Code: I48.0 - Paroxysmal atrial fibrillation Diagnosis: Principal Status: Acute (2) Dehydration, moderate ICD Code: E86.0 - Dehydration Diagnosis: Principal Status: Acute (3) Hypokalemia ICD Code: E87.6 - Hypokalemia Diagnosis: Principal Status: Acute Brief History This otherwise healthy 67-year-old gentleman presents to the [place] emergency department with a rapid heart rate in the range of 150-170 bpm. He developed atrial fibrillation once before following a back operation. His normal rhythm is sinus mechanism and he has never had persistent atrial fibrillation. This present illness was preceded by 3 days of vomiting and resulted in fairly marked dehydration. Additionally his potassium was low at 3.3. Following rate control with esmolol and digoxin bolus therapy in the emergency department his he converted to a sinus mechanism. On my arrival to the ICU at [place] she is in a sinus rhythm on esmolol drip. He requires low-dose Shane-Synephrine to maintain systolic blood pressure greater than 100. He is received over 3 L of isotonic crystalloid but is yet to make adequate urine. He has multiple myeloma by history and is presently in a drug protocol through the [facility] in [place]. He recently completed an additional cycle of Rivilmid and is on an experimental medication as well. CBC/BMP: 03/04/18 0725 03/04/18 1622 Significant Findings Laboratory Tests Test 03/04/18 07:25 03/04/18 15:15 03/04/18 16:22 Monocytes (%) (Auto) 16.9 % (0.0-8.0) Monocytes # (Auto) 1.4 TH/MM3 (0-0.9) Activated Partial Thromboplast Time 35.1 SEC (24.3-30.1) Blood Urea Nitrogen 30 MG/DL (7-18) Random Glucose 110 MG/DL (74-106) Albumin 3.3 GM/DL (3.4-5.0) Potassium Level 3.3 MEQ/L (3.5-5.1) Estimat Glomerular Filtration Rate 75 ML/MIN (>89) Total Creatine Kinase 36 U/L (39-308) Troponin I LESS THAN 0.02 NG/ML PE at Discharge Patient left AMA. He was alert and conversant. Wants to go see his doctor at [place]. Transfer Summary Converted to NSR after 3+ liters fluid and Brevibloc therapy. Normotensive. Alert, neuro exam grossly intact. Last seen at about 1900 hours. He left AMA around midnight same night. Pt Condition on Discharge: Virgilio Novak MD Mar 05, 2018 13:58
== END 2018-03-05 00:30 | disposition left against medical advice (07) | DRG 309 ==
LOC: PHED 07:11 → PHEDA 10:22 → OBSVTOIN 10:31 → PHICU 12:05
PROVIDERS: ADMIT Internal Medicine Critical Care Medicine; ATTEND Internal Medicine Critical Care Medicine
DX: I48.0 Paroxysmal atrial fibrillation (principal); C90.00 Multiple myeloma not having achieved remission; I42.9 Cardiomyopathy, unspecified; E86.0 Dehydration; I48.92 Unspecified atrial flutter; R11.2 Nausea with vomiting, unspecified; E87.6 Hypokalemia; R00.0 Tachycardia, unspecified
CPT/HCPCS: 71045; 71275; 80053; 82550; 83690; 83735; 83880; 84132; 84484; 85025; 85610; 85730; 87641; 93005; 93306; 94150; 96361; 96374; J0153; J1650; J2370; J3480; J7030; J7060; P9045; Q9967